=== PATIENT | male | born 1955 | race Caucasian/White ===

== ENCOUNTER 2019-12-02 23:56 | Inpatient (IN) ==
[2019-12-03 02:29] LABS: Basophils % 0.4 %; Eosinophils # 0.1 K/mcL (0.0-0.6); Eosinophils % 1.3 %; Hematocrit 51.1 % (37.5-50.1); Hemoglobin 16.1 g/dL (12.9-16.9); Immature Granulocytes % 0.2 % (0-4); Lymphocytes # 2.5 K/mcL (0.6-4.6); Mean Corpuscular HGB Conc 31.5 g/dL (31.6-35.5); Mean Corpuscular Hemoglobin 31.2 pg (28.0-33.3); Monocytes # 0.7 K/mcL (0.0-1.3); Monocytes % 6.9 %; Neutrophils # 6.1 K/mcL (1.6-8.9); Platelet Count 160 K/mcL (140-400); Red Blood Count 5.16 M/mcL (4.19-5.50); Red Cell Distribution Width 13.5 % (11.5-14.5); Segmented Neutrophils % 65.2 %; White Blood Count 9.4 K/mcL (4.3-11.1)
[2019-12-03 02:55] LABS: Alanine Aminotransferase 28 Units/L (7-52); Albumin 3.9 g/dL (3.5-5.7); Albumin/Globulin Ratio 1.7 (1.1-2.2); Alkaline Phosphatase 59 Units/L (34-104); Aspartate Amino Transferase 18 Units/L (13-39); BUN/Creatinine Ratio 37 (6-26); Bilirubin,Direct 0.4 mg/dL (0.0-0.2); Bilirubin,Indirect 0.8 mg/dL (0.0-1.0); Bilirubin,Total 1.2 mg/dL (0.3-1.0); Blood Urea Nitrogen 31 mg/dL (8-23); Carbon Dioxide 25 mEq/L (23-29); Chloride 127 mEq/L (98-107); Globulin 2.3 g/dL (2.4-3.5); Glucose 114 mg/dL (70-105); Osmolality,Calculated 339 (280-300); Potassium 3.6 mEq/L (3.5-5.1); Sodium 161 mEq/L (136-145); Total Protein 6.2 g/dL (6.4-8.9); Troponin I < 0.03 ng/mL (< 0.04); eGFR For African Americans > 60 (> 60); eGFR For Non-African Americans > 60 (> 60)
[2019-12-03] MEDS ORDERED: D5% in Water 1,000 ML IVC PRN (03:00)
[2019-12-03] MEDS ORDERED: *HR* Dextrose 50 % in Water (Syg) 50 ML SYRINGE IVP PRN (03:00)
[2019-12-03] MEDS ORDERED: D5% in Water 500 ML IVC SCH (03:00)
[2019-12-03] MEDS ORDERED: Dextrose Gel 15 GM/37.5 ML TUBE PO PRN ×2 (03:00)
[2019-12-03] MEDS ORDERED: Naloxone 0.4 MG/ML INJ IVP PRN (03:00)
[2019-12-03 03:12] LABS: Vitamin B12 543 pg/mL (250-1100)
[2019-12-03] MEDS: Insulin LISPRO 300 UNITS/3 ML VIAL SQ SCH ×3 (05:47→16:38)
[2019-12-03] MEDS: *HR* Heparin 5,000 UNIT/ML VIAL SQ SCH ×2 (06:19→16:30)
[2019-12-03 06:45] LABS: BUN/Creatinine Ratio 40 (6-26); Blood Urea Nitrogen 30 mg/dL (8-23); Calcium 8.8 mg/dL (8.6-10.3); Carbon Dioxide 25 mEq/L (23-29); Chloride 126 mEq/L (98-107); Glucose 149 mg/dL (70-105); Osmolality,Calculated 335 (280-300); Potassium 3.4 mEq/L (3.5-5.1); Sodium 158 mEq/L (136-145); eGFR For African Americans > 60 (> 60); eGFR For Non-African Americans > 60 (> 60)
[2019-12-03 08:27] LABS: Magnesium 2.4 mg/dL (1.6-2.6)
[2019-12-03] MEDS: Artificial Tears SOLN 15 ML BOTTLE BOTH EYES SCH ×4 (09:47→21:03)
[2019-12-03 10:46] LABS: BUN/Creatinine Ratio 41 (6-26); Blood Urea Nitrogen 29 mg/dL (8-23); Carbon Dioxide 25 mEq/L (23-29); Chloride 126 mEq/L (98-107); Glucose 115 mg/dL (70-105); Osmolality,Calculated 333 (280-300); Potassium 3.6 mEq/L (3.5-5.1); Sodium 158 mEq/L (136-145); eGFR For African Americans > 60 (> 60); eGFR For Non-African Americans > 60 (> 60)
[2019-12-03] MEDS ORDERED: D5% in Water 1,000 ML IVC SCH (11:00)
[2019-12-03 11:36] LABS: Bilirubin,Urine Moderate (Negative); Blood,Urine Negative (Negative); Clarity,Urine Clear (Clear); Color,Urine Dark Yellow (Yellow); Glucose,Urine (UA) Normal (Normal); Ketones,Urine Trace mg/dL (Negative); Leukocyte Esterase,Urine Small (Negative); Nitrite,Urine Negative (Negative); PH,Urine 5.5 pH Units (5.0-8.0); Protein,Urine Trace mg/dL (Neg-Trace); Specific Gravity,Urine > 1.030 (1.010-1.025)
[2019-12-03 11:37] LABS: Bacteria,Urine None Seen per hpf (None-Few); Hyaline Casts,Urine None Seen per lpf (None-Few); Squamous Epithelial Cell,Urine Many per lpf (None-Few)
[2019-12-03 11:44] LABS: Amphetamine Screen,Urine Negative ng/mL (Cutoff=1000); Barbiturate Screen,Urine Negative ng/mL (Cutoff=200); Benzodiazepines Screen,Urine Negative ng/mL (Cutoff=200); Cannabinoid Screen,Urine Negative ng/mL (Cutoff = 50); Cocaine Screen,Urine Negative ng/mL (Cutoff= 300); Opiate Screen,Urine Negative ng/mL (Cutoff=300); Phencyclidine Screen,Urine Negative ng/mL (Cutoff=25); Sodium, Urine 68.8 mEq/L
[2019-12-03 14:32] LABS: BUN/Creatinine Ratio 41 (6-26); Blood Urea Nitrogen 27 mg/dL (8-23); Calcium 8.9 mg/dL (8.6-10.3); Carbon Dioxide 24 mEq/L (23-29); Chloride 125 mEq/L (98-107); Glucose 134 mg/dL (70-105); Osmolality,Calculated 331 (280-300); Potassium 3.6 mEq/L (3.5-5.1); Sodium 157 mEq/L (136-145); eGFR For African Americans > 60 (> 60); eGFR For Non-African Americans > 60 (> 60)
[2019-12-03] MEDS: Carbidopa/Levodopa 25/100 TABLET PO SCH ×2 (16:32→21:01)
[2019-12-03] MEDS: Silvasorb 44.4 ML TUBE TP SCH (16:32)
[2019-12-03 19:33] LABS: BUN/Creatinine Ratio 38 (6-26); Blood Urea Nitrogen 26 mg/dL (8-23); Calcium 9.2 mg/dL (8.6-10.3); Carbon Dioxide 23 mEq/L (23-29); Chloride 124 mEq/L (98-107); Glucose 148 mg/dL (70-105); Osmolality,Calculated 332 (280-300); Potassium 3.6 mEq/L (3.5-5.1); Sodium 157 mEq/L (136-145); eGFR For African Americans > 60 (> 60); eGFR For Non-African Americans > 60 (> 60)
[2019-12-04] MEDS: Insulin LISPRO 300 UNITS/3 ML VIAL SQ SCH ×4 (00:26→17:06)
[2019-12-04 01:15] LABS: Alanine Aminotransferase 27 Units/L (7-52); Albumin 3.7 g/dL (3.5-5.7); Albumin/Globulin Ratio 1.5 (1.1-2.2); Alkaline Phosphatase 56 Units/L (34-104); Aspartate Amino Transferase 16 Units/L (13-39); BUN/Creatinine Ratio 35 (6-26); Bilirubin,Total 1.2 mg/dL (0.3-1.0); Blood Urea Nitrogen 24 mg/dL (8-23); Calcium 9.3 mg/dL (8.6-10.3); Carbon Dioxide 26 mEq/L (23-29); Chloride 124 mEq/L (98-107); Globulin 2.4 g/dL (2.4-3.5); Glucose 126 mg/dL (70-105); Osmolality,Calculated 328 (280-300); Potassium 3.5 mEq/L (3.5-5.1); Sodium 156 mEq/L (136-145); Total Protein 6.1 g/dL (6.4-8.9); eGFR For African Americans > 60 (> 60); eGFR For Non-African Americans > 60 (> 60)
[2019-12-04] MEDS: *HR* Heparin 5,000 UNIT/ML VIAL SQ SCH ×2 (05:15→17:05)
[2019-12-04] MEDS ORDERED: Acetaminophen 650 MG RECTAL SUPP RC PRN (07:51)
[2019-12-04] MEDS: Artificial Tears SOLN 15 ML BOTTLE BOTH EYES SCH ×4 (07:54→20:26)
[2019-12-04] MEDS: Carbidopa/Levodopa 25/100 TABLET PO SCH ×3 (07:54→20:23)
[2019-12-04] MEDS ORDERED: WATER IVC SCH (08:00)
[2019-12-04] MEDS ORDERED: D5 IVC SCH (08:00)
[2019-12-04] MEDS: Silvasorb 44.4 ML TUBE TP SCH (08:04)
[2019-12-04] MEDS: cefTRIAXone 1,000 MG in Water for inj. (sterile) 10 ML IVP SCH (08:12)
[2019-12-04] MEDS: D5% in Water 1,000 ML IVC SCH ×3 (08:19→21:54)
[2019-12-05] MEDS: Insulin LISPRO 300 UNITS/3 ML VIAL SQ SCH ×4 (00:03→18:45)
[2019-12-05 01:27] LABS: BUN/Creatinine Ratio 34 (6-26); Blood Urea Nitrogen 20 mg/dL (8-23); Carbon Dioxide 28 mEq/L (23-29); Chloride 117 mEq/L (98-107); Potassium 3.2 mEq/L (3.5-5.1); Sodium 150 mEq/L (136-145); eGFR For African Americans > 60 (> 60)
[2019-12-05 01:28] LABS: Calcium 8.5 mg/dL (8.6-10.3); Glucose 151 mg/dL (70-105); Osmolality,Calculated 316 (280-300); eGFR For Non-African Americans > 60 (> 60)
[2019-12-05] MEDS: D5% in Water 1,000 ML IVC SCH (04:08)
[2019-12-05] MEDS: *HR* Heparin 5,000 UNIT/ML VIAL SQ SCH ×2 (05:41→18:46)
[2019-12-05] MEDS ORDERED: D5 IVC SCH (08:00)
[2019-12-05] MEDS ORDERED: WATER IVC SCH (08:00)
[2019-12-05] MEDS: Carbidopa/Levodopa 25/100 TABLET PO SCH ×3 (09:00→22:45)
[2019-12-05] MEDS: Artificial Tears SOLN 15 ML BOTTLE BOTH EYES SCH ×4 (09:00→22:46)
[2019-12-05] MEDS: cefTRIAXone 1,000 MG in Water for inj. (sterile) 10 ML IVP SCH (09:02)
[2019-12-05] MEDS: Silvasorb 44.4 ML TUBE TP SCH (10:40)
[2019-12-06] MEDS: Insulin LISPRO 300 UNITS/3 ML VIAL SQ SCH ×5 (00:47→23:14)
[2019-12-06] MEDS: *HR* Heparin 5,000 UNIT/ML VIAL SQ SCH ×2 (06:35→17:01)
[2019-12-06 07:08] LABS: BUN/Creatinine Ratio 24 (6-26); Blood Urea Nitrogen 14 mg/dL (8-23); Carbon Dioxide 26 mEq/L (23-29); Chloride 111 mEq/L (98-107); Glucose 114 mg/dL (70-105); Osmolality,Calculated 301 (280-300); Potassium 3.4 mEq/L (3.5-5.1); Sodium 145 mEq/L (136-145); eGFR For African Americans > 60 (> 60); eGFR For Non-African Americans > 60 (> 60)
[2019-12-06] MEDS: Artificial Tears SOLN 15 ML BOTTLE BOTH EYES SCH ×5 (09:27→20:27)
[2019-12-06] MEDS: D5% in Water 1,000 ML IVC SCH (09:37)
[2019-12-06] MEDS: Carbidopa/Levodopa 25/100 TABLET PO SCH ×3 (10:00→20:40)
[2019-12-06] MEDS: Silvasorb 44.4 ML TUBE TP SCH (12:22)
[2019-12-07] MEDS: D5% in Water 1,000 ML IVC SCH ×3 (01:36→07:39)
[2019-12-07 02:44] LABS: BUN/Creatinine Ratio 31 (6-26); Blood Urea Nitrogen 13 mg/dL (8-23); Calcium 8.6 mg/dL (8.6-10.3); Carbon Dioxide 20 mEq/L (23-29); Chloride 111 mEq/L (98-107); Glucose 106 mg/dL (70-105); Osmolality,Calculated 293 (280-300); Potassium 3.4 mEq/L (3.5-5.1); Sodium 141 mEq/L (136-145); eGFR For African Americans > 60 (> 60); eGFR For Non-African Americans > 60 (> 60)
[2019-12-07 02:47] LABS: Hematocrit 47.4 % (37.5-50.1); Mean Corpuscular HGB Conc 31.6 g/dL (31.6-35.5); Mean Corpuscular Hemoglobin 30.4 pg (28.0-33.3); Mean Platelet Volume 12.1 fL (9.4-12.4); Platelet Count 126 K/mcL (140-400); Red Blood Count 4.94 M/mcL (4.19-5.50); White Blood Count 8.1 K/mcL (4.3-11.1)
[2019-12-07] MEDS: Silvasorb 44.4 ML TUBE TP SCH (05:15)
[2019-12-07] MEDS: *HR* Heparin 5,000 UNIT/ML VIAL SQ SCH (05:26)
[2019-12-07] MEDS: Insulin LISPRO 300 UNITS/3 ML VIAL SQ SCH ×2 (05:27→11:07)
[2019-12-07] MEDS: Carbidopa/Levodopa 25/100 TABLET PO SCH ×2 (07:41→13:44)
[2019-12-07] MEDS ORDERED: D5% in 0.45% NACL w KCl 20 MEQ/1,000 ML MLS IVC SCH (07:45)
[2019-12-07] MEDS: Artificial Tears SOLN 15 ML BOTTLE BOTH EYES SCH ×2 (08:14→11:08)
[2019-12-07 11:32] VITALS: BP 128/85
== END 2019-12-07 14:07 | disposition hospice, inpatient (51) | DRG 640 ==
LOC: 3BNU
PROVIDERS: ADMIT Internal Medicine; ATTEND Internal Medicine